=== PATIENT | female | born 1995 | race Caucasian/White ===

== ENCOUNTER 2017-04-08 23:18 | Inpatient (IN) | payer OTHER ==
--- NOTE | ~2017-04-08 | PA ---
Unit #: [id number] #: [id number] Patient: OG MARTINO [id number] [facility] [address] [place] [address] [id number] MR#: [id number] NAME: OG MARTINO ROOM: P110 Age: 21 Sex: F Admission Date: 04/09/2017 : 1995 Date of Assessment: 04/09/2017 Attending Physician: Ankush Rivas M.D. Admitting Physician: Ankush Rivas M.D. Primary Care Physician: Primary Care Physician No PSYCHIATRIC ASSESSMENT IDENTIFYING INFORMATION The patient is a 21-year-old female admitted after presenting to this facility voicing positive suicidal ideation. CHIEF COMPLAINT None given. INFORMANT(S) Chart. Patient cannot be aroused for interview. HISTORY OF PRESENT ILLNESS The patient is a 21-year-old female who presented to this facility reporting positive suicidal ideation. The patient had apparently been on psychotropic medications as an adolescent but he stopped these at the age of 15. The patient was reporting increasing suicidal ideation with plan to step into traffic stating in fact that she had done so yesterday in a suicide bid. The patient reports that she smokes 2 blunts of cannabis daily and reports use of alcohol twice weekly. The patient continues to endorse positive suicidal ideation today, but otherwise cannot be aroused for further interview. PAST PSYCHIATRIC HISTORY As noted previously, it appears as though the patient was probably hospitalized as an adolescent. PAST MEDICAL HISTORY Noncontributory. MEDICATIONS None. ALLERGIES None. FAMILY HISTORY Not obtained. SOCIAL HISTORY The patient lives with her "girlfriend." She is employed at [employer]. She completed "some college." SUBSTANCE ABUSE HISTORY As described previously. Unit #: [id number] #: [id number] Patient: GO MARTINO MENTAL STATUS EXAMINATION Examination at this time reveals the patient to be a very groggy female appearing her stated age. Attempts to arouse her are unsuccessful. ASSETS AND LIABILITIES The patient's assets to be assessed. Liabilities: Lack of resources, emerging axis II pathology. DIAGNOSTIC IMPRESSION 1. Dysthymic disorder. 2. Alcohol use disorder. 3. Cannabis use disorder. 4. Borderline personality traits versus disorder. TREATMENT PLAN The patient will remain hospitalized for safety and stabilization. The patient required a p.r.n. dose of Geodon this morning after becoming combative with staff. She has also expressed her "hatred of white people" which should make for a less than ideal therapeutic relationship with this physician who is . Whatever the case, we will attempt to work around this issues, and when the patient can better participate in interview, we will consider initiation of appropriate psychotropic medication and/or other somatic therapies as well as watching the patient for any signs of alcohol withdrawal. ESTIMATED LENGTH OF STAY 5 days. Dictated by... Ankush Rivas M.D. SIM/krystle TD: 04/09/2017 14:38 JOB #: [id number] PSYCHIATRIC ASSESSMENT Page 1 of 1 X Ankush Rivas MD X PSYCHIATRIC ASSESSMENT
--- NOTE | ~2017-04-08 | HP ---
Unit #: [id number] #: [id number] Patient: DIANA MARTINO [id number] [place] [address] [id number] MR#: [id number] NAME: DIANA MARTINO ROOM: P110 Age: 21 Sex: F Admission Date: 04/09/2017 : 1995 Attending Physician: Ankush Rivas M.D. Admitting Physician: Ankush Rivas M.D. Primary Care Physician: Primary Care Physician No HISTORY AND PHYSICAL HISTORY OF PRESENT ILLNESS Diana is a 21-year-old female admitted to [address] [place] [address] with depression and verbalizing wanting to hurt herself. PAST MEDICAL HISTORY Nothing significant. PAST SURGICAL HISTORY Nothing reported. ALLERGIES No known drug allergies. SOCIAL HISTORY Smokes one pack per day. Drinks alcohol on occasion. Admits to using marijuana on a daily basis. FAMILY HISTORY Medically noncontributory. REVIEW OF SYSTEMS CONSTITUTIONAL: No fever or chills. HEENT: Denies any sore throat, ear pain or runny nose. CARDIOVASCULAR: Denies chest pain, irregular heart rhythm or palpitations. CHEST: Denies shortness of breath or cough. No hemoptysis. GASTROINTESTINAL: Denies nausea, vomiting, diarrhea or chronic constipation. ENDOCRINE: Denies history of increased thirst or urination. No recent significant weight loss or gain. GENITOURINARY: Denies dysuria, frequency, or hematuria. SKIN: Denies any rashes. HEMATOLOGIC: Denies history of increased bleeding or bruising. MUSCULOSKELETAL: She reports pain in her right foot after she kicked a hard object after her admission. NEUROLOGIC: Denies problems with vision or speech. No frequent, severe headaches. No numbness, tingling or weakness in any extremities. Denies loss of bladder or bowel control. CURRENT MEDICATIONS 1. Nicotine patch 14 mg q day. 2. Milk of Magnesia p.r.n. 3. Maalox p.r.n. Unit #: [id number] #: [id number] Patient: DIANA MARTINO 4. Tylenol p.r.n. PHYSICAL EXAMINATION GENERAL: Alert, well-nourished, in no apparent distress. VITAL SIGNS: Blood pressure 130/90, heart rate 88, respirations 16, temperature 98.6. SKIN: Warm and dry without rash or lesion. HEENT: Normocephalic. TMs not viewed. Oral and nasal passages clear. Conjunctivae clear. Pupils equal, round and reactive to light and accommodation. Extraocular movements intact. NECK: Supple without lymphadenopathy or thyromegaly. HEART: Regular rate and rhythm without murmur. LUNGS: Clear. ABDOMEN: Soft, nontender. : Not done. EXTREMITIES: Right foot without significant swelling, bruising or redness. Limited range of motion. She is walking on the side of her foot. Full range of motion in her ankle without gross deformity. NEUROLOGICAL: Grossly within normal limits. Cranial Nerves: II: Visual [place] are intact. III, IV AND : Extraocular movements are intact. Pupils are equal, round and reactive to light. V: Facial sensation is grossly normal. VII: Facial movements and expression are normal. VIII: Auditory acuity grossly intact. IX, X: Uvula is midline. Phonation is normal. XI: Patient shrugs shoulders and turns head normally. XII: Tongue protrudes in the midline. Sensory and Motor Function: Sensory and motor sensation is grossly normal. Motor: moves all extremities well. Coordination: Gait is normal. Deep Tendon Reflexes: Intact. IMPRESSION 1. Psychiatric admission. 2. Injury to her right foot, self-inflicted after admission. RECOMMENDATIONS PSYCHIATRIC: Per psychiatrist. MEDICAL: 1. I see no contraindications to participating in facility's activities. 2. X-ray of the right foot and ankle to rule out fracture of dislocation. MEDICAL PROGNOSIS Good. MEDICAL CONDITION Stable. Dictated by... Elif MittalAMateo-Elena. for Bobbi Caputo/amado Unit #: [id number] #: [id number] Patient: DIANA MARTINO TD: 04/09/2017 21:22 JOB #: [id number] HISTORY AND PHYSICAL Page 1 of 1 X Adrianna Morfin HISTORY AND PHYSICAL
--- NOTE | ~2017-04-08 | DS ---
Unit #: [id number] #: [id number] Patient: OG MARTINO [id number] [facility] [address] [place] [address] [id number] MR#: [id number] NAME: OG MARTINO ROOM: P110 Age: 21 Sex: F Admission Date: 04/09/2017 : 1995 Discharge Date: 04/10/2017 Attending Physician: Ankush Rivas M.D. Primary Care Physician: Primary Care Physician No DISCHARGE SUMMARY REASON FOR ADMISSION The patient is a 21-year-old single female admitted to the hospital reporting positive suicidal ideation. HOSPITAL COURSE The patient was admitted to the [address] [place] [address] unit secondary to a history of heavy alcohol use. She began to threaten staff there and required management and transfer to the [address] [place] [address] unit. She had required a one time dose of Geodon and was unable to participate in interview with this physician on 04/09 but staff reported that her behavior had been extremely aggressive and inappropriate. On 04/10, however, the patient was pleasant, cooperative and appropriately contrite over events leading to hospitalization. She requested discharged on that day citing a need to return to work and per her request discharge was ordered. FINAL DIAGNOSES 1. Alcohol use disorder. 2. Mood disorder, unspecified. FOLLOWUP CARE Followup to take place through the auspices of community mental health resources. DISCHARGE MEDICATIONS The patient is discharged on no psychotropic or other medications. PROGNOSIS Considered fair. Dictated by... Ankush Rivas M.D. CB/jamie TD: 04/11/2017 20:51 JOB #: [id number] Unit #: [id number] #: [id number] Patient: OG MARTINO DISCHARGE SUMMARY Page 1 of 1 X Ankush Rivas MD X DISCHARGE SUMMARY
[2017-04-10 10:22] LABS: BASOPHIL# 0.1 X10e3 (0-0.3); BASOPHIL% 0.9 % (0-2.5); EOSINOPHIL# 0.2 X10e3 (0-0.7); EOSINOPHIL% 2.1 % (0.0-7.0); HEMATOCRIT 41.9 % (35.0-45.0); HEMOGLOBIN 14.1 gm/dL (12.0-16.0); LYMPHOCYTE# 2.6 X10e3 (1.0-3.5); LYMPHOCYTE% 32.8 % (17.0-45.0); MEAN CELL VOLUME 95.3 FL (83-96); MEAN CORPUSCULAR HEMOGLOBIN 32.1 PG (28-34); MEAN CORPUSCULAR HGB CONC 33.7 g/dL (30-36); MEAN PLATELET VOLUME 7.2 FL (6.5-11.5); MONOCYTE# 0.6 X10e3 (0-1.0); MONOCYTE% 7.1 % (3.0-12.0); NEUTROPHIL# 4.6 X10e3 (1.5-7.1); NEUTROPHIL% 57.1 % (40-75); PLATELET COUNT 339 X10e3 (140-420); RED CELL DISTRIBUTION WIDTH 13.7 % (11.0-15.5)
[2017-04-10 10:23] LABS: DIFF IND NO
[2017-04-10 12:15] LABS: ALBUMIN SERUM 4.3 g/dL (3.5-5.0); BUN/CREATININE RATIO 11.11; CALCIUM SERUM 9.3 mg/dL (8.4-10.2); CREATININE SERUM 0.9 mg/dL (0.6-1.4); GLOM FILT RATE Estimated 90.2 mL/min (>60); POTASSIUM 3.9 mmol/L (3.5-5.1); PROTEIN TOTAL SERUM 7.3 g/dL (6.0-8.3)
== END 2017-04-10 16:17 | disposition home or self-care (01) | DRG 881 ==
LOC: P1S 04-09 01:14 → P2S 04-09 01:14 → P1S 04-09 11:32
PROVIDERS: Specialist
DX: F34.1 Dysthymic disorder (principal); F39 Unspecified mood [affective] disorder; F10.20 Alcohol dependence, uncomplicated; F12.10 Cannabis abuse, uncomplicated; F60.3 Borderline personality disorder; F17.210 Nicotine dependence, cigarettes, uncomplicated; S99.921A Unspecified injury of right foot, initial encounter; Y33.XXXA Other specified events, undetermined intent, initial encounter; Y92.239 Unspecified place in hospital as the place of occurrence of the external cause
CPT/HCPCS: 80053; 84703; 85025; J3486